=== PATIENT | male | born 1950 | race Caucasian/White ===

== ENCOUNTER 2025-04-03 10:58 | Emergency (ER) | payer MEDICARE, OTHER ==
[~2025-04-03] VITALS: Ht 182.9 cm; Wt 105.5 kg
[~2025-04-03 10:58] MED LIST: ATORVASTATIN CA40 MG PO; COUMADIN2.5 MG PO; METFORMIN HCL1000 MG PO; METFORMIN HCL500 M1 PO; MULTIVITAMINS1 EAC7 PO; PIOGLITAZONE HC15 MG PO; PREDNISONE20 MG PO; WARFARIN SODIUM5 MG PO
[2025-04-03] MEDS ORDERED: PROCHLORPERAZINE EDISYLATE 10 MG/2 ML VIAL IV ONE (13:45)
[2025-04-03] MEDS ORDERED: SODIUM CHLORIDE 0.9% 1,000 ML IV PRN (14:15)
[2025-04-03 14:24] LABS: BASOPHILS 1.2 % (0.2-1.2); EOSINOPHILS 2.7 % (0.8-7.0); LYMPHOCYTES 23.1 % (21.8-53.1); MCH 31.3 PG (25.7-32.2); MCHC 33.3 g/dL (32.3-36.5); MCV 94.1 fL (79.0-92.2); MONOCYTES 10.3 % (5.3-12.2); NEUTROPHILS 62.5 % (34.0-67.9); RBC 4.60 M/uL (4.63-6.08)
[2025-04-03 14:50] LABS: ALT (SGPT) 21.0 U/L (14-59); AST (SGOT) 14.0 U/L (15-37); GLOMERULAR FILTRATION RATE,EST 81.0 mL/min (>60); PROTEIN, TOTAL 6.4 g/dL (6.4-8.2); UREA NITROGEN 12.0 mg/dL (7-18)
[2025-04-03 15:15] LABS: BLOOD/HGB, URINE NEGATIVE (Negative); KETONE, URINE NEGATIVE (Negative); LEUK ESTERASE, URINE NEGATIVE (negative); NITRITE, URINE NEGATIVE (negative)
[2025-04-03 17:13] VITALS: BP 160/74
== END 2025-04-03 17:14 | disposition home or self-care (01) ==
LOC: ED 10:58
PROVIDERS: Emergency Medicine
DX: H53.2 Diplopia (principal); Z79.01 Long term (current) use of anticoagulants; Z79.899 Other long term (current) drug therapy
CPT/HCPCS: 36415; 70551; 80053; 81003; 85025; 96374; 96375; 99284-25; J0780; J1200; J7030